=== PATIENT | female | born 1990 | race Caucasian/White ===

== ENCOUNTER 2025-08-27 19:54 | Emergency (ER) | payer SELFPAY ==
[~2025-08-27] VITALS: Ht 167.6 cm; Wt 82.0 kg
[2025-08-27 19:59] VITALS: O2SAT 99
[2025-08-27] MEDS: ACETAMINOPHEN 500MG TABLET PO ONE (20:43)
[2025-08-27 20:44] LABS: BASOPHILS % 1.1 % (0.0-2.0); EOSINOPHILS % 4.4 % (0.0-5.0); HEMATOCRIT. 35.2 % (36.0-48.0); HEMOGLOBIN. 11.3 g/dL (12.0-16.0); LYMPHOCYTES % 19.4 % (20.0-50.0); MEAN PLATELET VOLUME 8.2 fl (7.4-10.4); MONOCYTES % 5.8 % (2.0-8.0); NEUTROPHILS % 69.3 % (40.0-76.0); PLATELET 282 x1000/uL (130-400); RED BLOOD CELL COUNT 4.46 mill/uL (4.2-5.4); RED CELL DISTRIBUTION WIDTH 18.0 % (11.6-14.6)
[2025-08-27] MEDS: METOCLOPRAMIDE HCL 10MG/2ML VIAL IV ONE (20:45)
[2025-08-27] MEDS: DEXAMETHASONE 4MG/ML 1ML VIAL IV ONE (20:45)
[2025-08-27] MEDS: SODIUM CHLORIDE 0.9% 1,000 ML IV ONE (20:46)
[2025-08-27 20:56] LABS: INR 1.0
[2025-08-27 21:03] LABS: HCG SCREEN NEGATIVE
[2025-08-27 21:06] LABS: CREATININE 0.8 mg/dL (0.6-1.0); UREA NITROGEN BLOOD 11 mg/dL (9-23)
[2025-08-27 21:08] LABS: ASPARTATE AMINOTRANSFERASE 18 IU/L (<34); BILIRUBIN DIRECT < 0.1 mg/dL (<=3.0)
[2025-08-27 21:09] LABS: BILIRUBIN TOTAL 0.3 mg/dL (0.1-1.0); PROTEIN TOTAL 7.3 g/dL (6.0-8.3)
[2025-08-27 22:23] VITALS: PULSE 82; TEMP 36.9; O2SAT 98
[2025-08-27 23:23] LABS: INFLUENZA TYPE A Presumptive Negative (Pres. Neg.); INFLUENZA TYPE B Presumptive Negative (Pres. Neg.)
[2025-08-27 23:24] VITALS: BP 107/77; RESP 21
[2025-08-27 23:24] LABS: RESPIRATORY SYNCYTIAL VIRUS Not Detected (Not Detectd)
[2025-08-27] MEDS: LIDOCAINE 5% PATCH TOP SCH (23:24)
== END 2025-08-27 23:35 | disposition home or self-care (01) ==
LOC: ER 19:54 → CMPBEDREQ 23:53
DX: S09.90XA Unspecified injury of head, initial encounter (principal); M54.2 Cervicalgia; R11.10 Vomiting, unspecified; R42 Dizziness and giddiness; R23.2 Flushing; Z20.822 Contact with and (suspected) exposure to COVID-19; Z79.899 Other long term (current) drug therapy; W22.8XXA Striking against or struck by other objects, initial encounter; Y93.89 Activity, other specified; Y92.89 Other specified places as the place of occurrence of the external cause; Y99.8 Other external cause status
CPT/HCPCS: 80076; 80048; 81025; 80320; 82140; 82962; 84703; 83735; 85025; 85610; 87420; 87804 ×2; 36415; 70450; 93005; 96361; 96374; 96375; 99285; 87426; J1100; J2765; J7030; G0480